=== PATIENT | female | born 1980 | race Caucasian/White ===

== ENCOUNTER 2016-06-18 19:28 | Emergency (ER) | payer BC, OTHER ==
[~2016-06-18] VITALS: Ht 154.9 cm; Wt 64.9 kg
[2016-06-18] MEDS ORDERED: NAPROXEN 250 MG TAB PO ONE (20:15)
[2016-06-18] MEDS ORDERED: NAPR500T PO (21:27)
[2016-06-18 21:32] VITALS: BP 112/68
--- NOTE | 2016-06-19 08:06 | REP ---
Left foot four views : There is no fracture or dislocation. Mineralization and joint spaces are normal. There are no calcifications or foreign bodies. Impression: Negative left foot . Signed by Bc Short MD 06/19/2016 07:57 A
--- NOTE | 2016-06-19 08:06 | REP ---
Left ankle four views : There is no fracture or dislocation. Mineralization and joint spaces are normal. There are no calcifications or foreign bodies. Impression: Negative left ankle . Signed by Bc Short MD 06/19/2016 07:57 A
== END 2016-06-18 21:41 | disposition home or self-care (01) ==
LOC: M ED 20:27
DX: S93.402A Sprain of unspecified ligament of left ankle, initial encounter (principal); S93.602A Unspecified sprain of left foot, initial encounter; X58.XXXA Exposure to other specified factors, initial encounter; Y92.89 Other specified places as the place of occurrence of the external cause; Y93.89 Activity, other specified; Y99.8 Other external cause status; Z88.1 Allergy status to other antibiotic agents; Z88.5 Allergy status to narcotic agent